=== PATIENT | female | born 1985 | race Caucasian/White ===

== ENCOUNTER 2018-07-24 22:31 | Inpatient (IN) | payer OTHER ==
[~2018-07-24] VITALS: Ht 147.3 cm; Wt 41.9 kg
[~2018-07-24 22:31] MED LIST: ALBU25PO2; SYMBACORT
--- NOTE | 2018-07-24 22:49 | NUR ---
PT BIB [facility] FROM HOME FOR PRODUCTIVE COUGH X5D, WITH WORSENING SOB TODAY. PT HAS HX OF BRONCHOPULMONARY DYSPLASIS, WEARS 1L O2 AT HOME AND USES ALBUTEROL INHALER BUT WASN'T EFFECTIVE TODAY. EMS FOUND PT TO BE 84% ON 1L, IMPROVED TO 93% ON 3L. TREATED WITH 2 DUONEB & 1 ALBUTEROL TX EN ROUTE. PT ARRIVES TO ED IN MODERATE RESPIRATORY DISTRESS, A&OX4, ABLE TO SPEAK IN FULL SENTENCES. RR 28, 93% ON 6L NC. TEMP 100.0. ERP AT BS IMMEDIATELY. BOYFRIEND AT BS.
[2018-07-24] MEDS ORDERED: methylPREDNISolone SOD SUCC 125 MG/2 ML IVP ONE (23:00)
[2018-07-24] MEDS: ALBUTEROL 0.5%, 20ML NPPB SCH (23:11)
[2018-07-24] MEDS ORDERED: methylPREDNISolone SOD SUCC 125 MG/2 ML ONE (23:13)
--- NOTE | 2018-07-24 23:20 | NUR ---
PT GOT BREATHING TX FROM RT. NOW BREATHING MUCH LESS LABORED. O2 TITRATED DOWN TO 4L NC. Addendum: 07/24/18 at 2320 by HBENSON MEDICATED WITH SOLUMEDROL PER ORDERS.
[2018-07-24 23:54] LABS: BASOPHILS % (AUTO) 0 % (0-1); EOSINOPHILS # (AUTO) 0.05 x10^3/uL (0-0.4); EOSINOPHILS % (AUTO) 0 % (1-7); LYMPHOCYTES # (AUTO) 0.57 x10^3/uL (1-3.4); LYMPHOCYTES % (AUTO) 4 % (22-44); MD NO; MEAN CORPUSCULAR HEMOGLOBIN 30.6 pg (27.0-34.8); MEAN CORPUSCULAR HGB CONC 33.8 g/dL (32.4-35.8); MEAN CORPUSCULAR VOLUME 90.4 fL (80-100); MEAN PLATELET VOLUME 8.1 fL (7.4-10.4); MONOCYTES # (AUTO) 0.71 x10^3/uL (0.2-0.8); MONOCYTES % (AUTO) 5 % (2-9); NEUTROPHILS # (AUTO) 11.85 x10^3/uL (1.8-6.8); NEUTROPHILS % (AUTO) 90 % (42-75); PLATELET COUNT 239 x10^3/uL (130-400); RED BLOOD COUNT 5.23 x10^6/uL (3.82-5.3); RED CELL DISTRIBUTION WIDTH 12.8 % (9.6-15.2)
[2018-07-25] MEDS ORDERED: ALBU18HF INH (00:04)
[2018-07-25] MEDS ORDERED: FLUT1DIS3 INH (00:04)
--- NOTE | 2018-07-25 00:04 | NUR ---
REPORTED TO GINGER BEGUM.
[2018-07-25 00:07] LABS: ALANINE AMINOTRANSFERASE 30 U/L (12-78); ANION GAP 7 mmol/L (5-15); CALCIUM 8.2 mg/dL (8.5-10.1); CHLORIDE 108 mmol/L (98-107); CREATININE 0.62 mg/dL (0.55-1.02)
--- NOTE | 2018-07-25 00:07 | NUR ---
RECEIVED BS REPORT FROM KEL FRIEDMAN TO ASSUME PT. CARE. PT. RESTING ON GURNEY IN SITTING POSITON WITH NADN. SKIN PWD, RESP EVEN, NON-LABORED, O2 VIA NC 4L IN USE (HOME O2 IS 1L NC). PT. REPROTS FEELING BETTER AT THIS TIME. FAMILY AT BS FOR SUPPORT. PT. AWARE OF PLAN FOR ADMISSION. CALL LIGHT IN REACH. ALL MONITORS IN PLACE.
[2018-07-25 00:11] LABS: ALKALINE PHOSPHATASE 47 U/L (45-117); BILIRUBIN,TOTAL 0.5 mg/dL (0.2-1.0); TOTAL PROTEIN 7.4 g/dL (6.4-8.2); TROPONIN I < 0.015 ng/mL (0.000-0.045)
[2018-07-25] MEDS ORDERED: AZITHROMYCIN 500 MG in SODIUM CHLORIDE 0.9% 250 ML IV ONE (00:30)
--- NOTE | 2018-07-25 00:55 | NUR ---
[facility] AT TO EVAL PT. FOR ADMISSION.
[2018-07-25] MEDS ORDERED: BISACODYL 10 MG SUPP PR PRN (01:00)
[2018-07-25] MEDS ORDERED: ONDANSETRON 2MG/ML, 2ML IVPush PRN (01:00)
[2018-07-25] MEDS ORDERED: ACETAMINOPHEN 325 MG TABLET PO PRN (01:00)
[2018-07-25] MEDS ORDERED: POLYETHYLENE GLYCOL 17 GM PACKET PO PRN (01:00)
[2018-07-25] MEDS ORDERED: morphine SULFATE 10 MG/ML, 1ML IVPush PRN ×2 (01:00→22:00)
[2018-07-25] MEDS ORDERED: DOCUSATE 100 MG CAPSULE PO PRN (01:00)
[2018-07-25 01:29] LABS: HEMOGLOBIN A1C 5.5 % (4.2-6.3)
[2018-07-25 01:31] LABS: FREE T4 (FREE THYROXINE) 1.51 ng/dL (0.76-1.46); THYROID STIMULATING HORMONE 0.628 mIU/L (0.358-3.740)
--- NOTE | 2018-07-25 01:42 | NUR ---
PT. ASSISTED TO COMMODE AND BACK TO [facility] POSITIONED FOR COMFORT. PT. TOLERATED WELL. AWAITING BED PLACEMENT.
--- NOTE | 2018-07-25 02:52 | NUR ---
REPORT TO KEL MUSE. FLOOR READY FOR PT. TRANSPORT.
[2018-07-25 03:02] LABS: RAPID INFLUENZA A Negative (Negative); RAPID INFLUENZA B Negative (Negative)
[2018-07-25 03:15] VITALS: BP 131/94
[2018-07-25] MEDS: ALBUTEROL SULFATE 2.5 MG/3 ML NPPB SCH ×5 (06:00→23:00)
[2018-07-25] MEDS: CEFTRIAXONE PMX 2GM/50ML 50 ML IV SCH (06:12)
[2018-07-25] MEDS: SODIUM CHLORIDE 0.9% 1,000 ML IV SCH ×2 (06:12→11:10)
[2018-07-25] MEDS: HEPARIN 5,000 UNITS/ML, 1ML SQ SCH ×3 (06:13→22:15)
[2018-07-25] MEDS: BUDESONIDE 0.5 MG/2 ML INHA NPPB SCH ×2 (08:05→19:03)
[2018-07-25 08:27] VITALS: BP 144/84
[2018-07-25] MEDS ORDERED: TEMPLATE NON-FORMULARY MED. (Fluticasone/Salmeterol** (Advair 250-50 Diskus**) 1 PUFF) INH SCH (09:00)
[2018-07-25 13:13] LABS: HCG UR SG 1.033 (1.003-1.030)
[2018-07-25 13:34] VITALS: BP 151/95
[2018-07-25] MEDS: methylPREDNISolone SOD SUCC 125 MG/2 ML IVPush SCH ×2 (13:57→20:17)
[2018-07-25] MEDS ORDERED: SODIUM CHLORIDE 0.9% 1,000 ML IV SCH (14:00)
[2018-07-25] MEDS ORDERED: OMNIPAQUE 350 MG/ML, 100ML BOTTLE ONE (15:44)
[2018-07-25 17:16] LABS: BASOPHILS % (AUTO) 0 % (0-1); EOSINOPHILS % (AUTO) 0 % (1-7); LYMPHOCYTES % (AUTO) 7 % (22-44); MD NO; MEAN CORPUSCULAR HEMOGLOBIN 30.6 pg (27.0-34.8); MEAN CORPUSCULAR HGB CONC 33.9 g/dL (32.4-35.8); MEAN CORPUSCULAR VOLUME 90.3 fL (80-100); MEAN PLATELET VOLUME 8.5 fL (7.4-10.4); MONOCYTES # (AUTO) 0.41 x10^3/uL (0.2-0.8); MONOCYTES % (AUTO) 7 % (2-9); NEUTROPHILS # (AUTO) 5.05 x10^3/uL (1.8-6.8); NEUTROPHILS % (AUTO) 86 % (42-75); PLATELET COUNT 234 x10^3/uL (130-400); RED BLOOD COUNT 5.02 x10^6/uL (3.82-5.3); RED CELL DISTRIBUTION WIDTH 12.9 % (9.6-15.2)
[2018-07-25 17:21] LABS: ANION GAP 6 mmol/L (5-15); CALCIUM 8.2 mg/dL (8.5-10.1); CHLORIDE 110 mmol/L (98-107)
[2018-07-25] MEDS: ALBUTEROL 0.5%, 20ML NPPB SCH (20:50)
[2018-07-25] MEDS: LORazepam 2 MG/ML, 1ML IVPush PRN (22:15)
[2018-07-25] MEDS ORDERED: Albuterol Continuous Neb. Aerogen Syringe 50mg/60ml INLINE PRN (22:30)
[2018-07-25] MEDS ORDERED: MAGNESIUM SULFATE PMX 2GM/50ML 50 ML IV ONE (22:30)
[2018-07-25] MEDS: AZITHROMYCIN 500 MG in SODIUM CHLORIDE 0.9% 250 ML IV SCH (22:59)
[2018-07-26] MEDS: methylPREDNISolone SOD SUCC 125 MG/2 ML IVPush SCH ×4 (01:42→20:20)
[2018-07-26] MEDS: ALBUTEROL SULFATE 2.5 MG/3 ML NPPB SCH ×5 (03:00→23:00)
[2018-07-26] MEDS: LORazepam 2 MG/ML, 1ML IVPush PRN (03:56)
[2018-07-26] MEDS ORDERED: SUCCINYLCHOLINE 20 MG/ML, 10ML IVPush ONE (04:50)
[2018-07-26] MEDS ORDERED: ETOMIDATE 20 MG/10 ML IVPush ONE (04:50)
[2018-07-26] MEDS ORDERED: SENNOSIDES 8.8 MG/5 ML ORAL SOL NG PRN (05:00)
[2018-07-26] MEDS ORDERED: SENNA/DOCUSATE TABLET NG PRN (05:00)
[2018-07-26] MEDS ORDERED: BISACODYL 10 MG SUPP PR PRN (05:00)
[2018-07-26] MEDS ORDERED: LACTULOSE 20 GM/30 ML UDC NG PRN (05:00)
[2018-07-26] MEDS: ALBUTEROL/IPRATROPIUM 2.5MG/0.5MG, 3 ML INLINE SCH ×2 (05:00→10:55)
[2018-07-26] MEDS ORDERED: GLUCAGON 1 MG IM PRN (05:00)
[2018-07-26] MEDS ORDERED: PHARMACY MAY ADJ FOR RENAL FX MC SCH (05:00)
[2018-07-26] MEDS ORDERED: LORazepam 2 MG/ML, 1ML IVPush PRN (05:00)
[2018-07-26] MEDS ORDERED: DEXTROSE 50%, 50ML SYRINGE IVPush PRN (05:00)
[2018-07-26] MEDS ORDERED: DEXTROSE 4 GM TAB.CHEW PO PRN (05:00)
[2018-07-26] MEDS: PROPOFOL 100 ML IV PRN ×2 (05:15→10:46)
[2018-07-26] MEDS ORDERED: PROPOFOL 100 ML IV PRN (05:30)
[2018-07-26 06:30] LABS: BASOPHILS % (AUTO) 0 % (0-1); EOSINOPHILS % (AUTO) 0 % (1-7); LYMPHOCYTES # (AUTO) 0.55 x10^3/uL (1-3.4); LYMPHOCYTES % (AUTO) 5 % (22-44); MD NO; MEAN CORPUSCULAR HEMOGLOBIN 30.7 pg (27.0-34.8); MEAN CORPUSCULAR HGB CONC 33.9 g/dL (32.4-35.8); MEAN CORPUSCULAR VOLUME 90.4 fL (80-100); MEAN PLATELET VOLUME 8.7 fL (7.4-10.4); MONOCYTES # (AUTO) 0.48 x10^3/uL (0.2-0.8); MONOCYTES % (AUTO) 5 % (2-9); NEUTROPHILS # (AUTO) 9.21 x10^3/uL (1.8-6.8); NEUTROPHILS % (AUTO) 90 % (42-75); PLATELET COUNT 261 x10^3/uL (130-400); RED BLOOD COUNT 4.84 x10^6/uL (3.82-5.3); RED CELL DISTRIBUTION WIDTH 12.8 % (9.6-15.2)
[2018-07-26 06:34] LABS: ALANINE AMINOTRANSFERASE 38 U/L (12-78); ALBUMIN 3.8 g/dL (3.4-5.0); ANION GAP 5 mmol/L (5-15); CHLORIDE 111 mmol/L (98-107); CHOLESTEROL, TOTAL 143 mg/dL (140-239); CREATININE 0.72 mg/dL (0.55-1.02)
[2018-07-26 06:37] LABS: ALKALINE PHOSPHATASE 45 U/L (45-117); BILIRUBIN,TOTAL 0.5 mg/dL (0.2-1.0); HDL CHOLESTEROL (DIRECT) 38 mg/dL (40-60); TOTAL PROTEIN 7.3 g/dL (6.4-8.2); TRIGLYCERIDES 114 mg/dL (50-200); VLDL CHOLESTEROL 23 mg/dL (0-25)
[2018-07-26 07:10] LABS: ACETONE, SERUM Negative (Negative)
[2018-07-26 07:20] LABS: CHOL/HDL RATIO 3.8; HDL CHOL % 27 % (28-40); LDL CHOLESTEROL,CALCULATED 82 mg/dL (54-169); LDL/HDL RATIO 2.2 (0.5-3.0)
[2018-07-26] MEDS: HEPARIN 5,000 UNITS/ML, 1ML SQ SCH ×3 (08:08→20:39)
[2018-07-26] MEDS: FAMOTIDINE 20 MG/2 ML IV SCH ×2 (08:08→20:20)
[2018-07-26] MEDS: CEFTRIAXONE PMX 2GM/50ML 50 ML IV SCH (08:21)
[2018-07-26] MEDS: INSULIN LISPRO 100 UNITS/ML, PEN SQ-INSULIN SCH ×4 (08:27→20:29)
[2018-07-26] MEDS ORDERED: SODIUM CHLORIDE 0.9% 1,000 ML IV SCH (08:30)
[2018-07-26 08:44] LABS: MICROSCOPIC INDICATED
[2018-07-26 08:52] LABS: CULTURE INDICATED? NO
[2018-07-26] MEDS: SODIUM CHLORIDE FLUSH 10ML SYR IVF SCH ×2 (09:00→20:23)
--- NOTE | 2018-07-26 09:27 | NUR ---
TF GOAL: w/ propofol: OSMOLITE 1.2 @ 45ML/HR off propofol: OSMOLITE 1.2 @ 50ML/HR
[2018-07-26] MEDS: BUDESONIDE 0.5 MG/2 ML INHA NPPB SCH ×2 (10:55→21:00)
[2018-07-26] MEDS ORDERED: ETOMIDATE 20 MG/10 ML ONE (12:00)
[2018-07-26] MEDS ORDERED: SUCCINYLCHOLINE 20 MG/ML, 10ML ONE (12:00)
[2018-07-26] MEDS ORDERED: PROPOFOL 10 MG/ML, 100ML IV ONE (12:00)
[2018-07-26] MEDS ORDERED: SODIUM CHLORIDE 0.9%, 500ML IVBOLUS ONE (14:30)
[2018-07-26] MEDS: FENTANYL PF 100 MCG/2ML IVPush PRN (23:49)
[2018-07-26] MEDS: AZITHROMYCIN 500 MG in SODIUM CHLORIDE 0.9% 250 ML IV SCH (23:57)
[2018-07-27] MEDS: ALBUTEROL SULFATE 2.5 MG/3 ML NPPB SCH ×3 (02:16→11:00)
[2018-07-27] MEDS: methylPREDNISolone SOD SUCC 125 MG/2 ML IVPush SCH ×4 (02:54→19:26)
[2018-07-27] MEDS: FENTANYL PF 100 MCG/2ML IVPush PRN ×7 (03:07→23:22)
[2018-07-27 05:07] LABS: ANION GAP 4 mmol/L (5-15); CALCIUM 7.7 mg/dL (8.5-10.1); CHLORIDE 117 mmol/L (98-107); CREATININE 0.61 mg/dL (0.55-1.02)
[2018-07-27 05:11] LABS: MEAN CORPUSCULAR HEMOGLOBIN 29.9 pg (27.0-34.8); MEAN CORPUSCULAR VOLUME 90.7 fL (80-100); MEAN PLATELET VOLUME 8.6 fL (7.4-10.4); PLATELET COUNT 231 x10^3/uL (130-400); RED BLOOD COUNT 4.43 x10^6/uL (3.82-5.3)
[2018-07-27] MEDS ORDERED: SODIUM CHLORIDE 0.9%, 500ML IVBOLUS ONE (05:30)
[2018-07-27] MEDS: CEFTRIAXONE PMX 2GM/50ML 50 ML IV SCH (05:33)
[2018-07-27] MEDS: HEPARIN 5,000 UNITS/ML, 1ML SQ SCH (05:33)
[2018-07-27 05:39] LABS: BASOPHILS % (AUTO) 0 % (0-1); EOSINOPHILS % (AUTO) 0 % (1-7); LYMPHOCYTES % (AUTO) 2 % (22-44); MD SCAN; MONOCYTES # (AUTO) 0.57 x10^3/uL (0.2-0.8); MONOCYTES % (AUTO) 3 % (2-9); NEUTROPHILS % (AUTO) 94 % (42-75)
[2018-07-27] MEDS: SODIUM CHLORIDE 0.9% 1,000 ML IV SCH ×2 (07:19→19:13)
[2018-07-27] MEDS: PROPOFOL 100 ML IV PRN (07:19)
[2018-07-27] MEDS: INSULIN LISPRO 100 UNITS/ML, PEN SQ-INSULIN SCH ×3 (08:25→19:34)
[2018-07-27] MEDS: FAMOTIDINE 20 MG/2 ML IV SCH ×2 (08:47→19:26)
[2018-07-27] MEDS: BUDESONIDE 0.5 MG/2 ML INHA NPPB SCH (09:00)
[2018-07-27] MEDS: DOXYCYCLINE 100 MG in DEXTROSE 5% 250 ML IV SCH ×2 (09:59→21:18)
[2018-07-27] MEDS: SODIUM CHLORIDE FLUSH 10ML SYR IVF SCH ×2 (09:59→19:27)
[2018-07-27 10:46] LABS: INTERNATIONAL NORMALIZED RATIO 1.07 (0.93-1.1); PROTHROMBIN TIME 11.2 Seconds (9.6-11.5)
[2018-07-27] MEDS ORDERED: BUDESONIDE 0.5 MG/2 ML INHA NPPB PRN (13:00)
[2018-07-27] MEDS: LIDOCAINE-MPF 1%, 2ML ENDO PRN (22:03)
[2018-07-27] MEDS: ALBUTEROL SULFATE 2.5 MG/3 ML NPPB PRN (22:03)
[2018-07-28] MEDS: INSULIN LISPRO 100 UNITS/ML, PEN SQ-INSULIN SCH ×4 (01:00→19:00)
[2018-07-28] MEDS: FENTANYL PF 100 MCG/2ML IVPush PRN ×3 (01:06→08:11)
[2018-07-28] MEDS: methylPREDNISolone SOD SUCC 125 MG/2 ML IVPush SCH ×4 (01:48→20:17)
[2018-07-28] MEDS: ALBUTEROL SULFATE 2.5 MG/3 ML NPPB PRN ×4 (02:00→10:58)
[2018-07-28] MEDS: LIDOCAINE-MPF 1%, 2ML ENDO PRN ×2 (02:00→14:45)
[2018-07-28 04:13] LABS: MEAN CORPUSCULAR HEMOGLOBIN 30.3 pg (27.0-34.8); MEAN CORPUSCULAR HGB CONC 33.1 g/dL (32.4-35.8); MEAN CORPUSCULAR VOLUME 91.7 fL (80-100); MEAN PLATELET VOLUME 8.7 fL (7.4-10.4); PLATELET COUNT 243 x10^3/uL (130-400); RED BLOOD COUNT 4.37 x10^6/uL (3.82-5.3); RED CELL DISTRIBUTION WIDTH 13.3 % (9.6-15.2)
[2018-07-28 04:26] LABS: ANION GAP 3 mmol/L (5-15); CALCIUM 7.7 mg/dL (8.5-10.1); CHLORIDE 118 mmol/L (98-107)
[2018-07-28 04:28] LABS: BASOPHILS # (AUTO) 0.02 x10^3/uL (0-0.1); BASOPHILS % (AUTO) 0 % (0-1); EOSINOPHILS % (AUTO) 0 % (1-7); LYMPHOCYTES # (AUTO) 0.25 x10^3/uL (1-3.4); LYMPHOCYTES % (AUTO) 1 % (22-44); MD SCAN; MONOCYTES # (AUTO) 0.49 x10^3/uL (0.2-0.8); MONOCYTES % (AUTO) 3 % (2-9); NEUTROPHILS # (AUTO) 18.08 x10^3/uL (1.8-6.8); NEUTROPHILS % (AUTO) 96 % (42-75)
[2018-07-28] MEDS ORDERED: BENZOCAINE AEROSOL SPRAY 20%, 60ML TP ONE (05:00)
[2018-07-28] MEDS: SODIUM CHLORIDE 0.9% 1,000 ML IV SCH (06:17)
[2018-07-28] MEDS: FAMOTIDINE 20 MG/2 ML IV SCH ×2 (08:00→20:17)
[2018-07-28] MEDS: SODIUM CHLORIDE FLUSH 10ML SYR IVF SCH ×2 (09:00→20:17)
[2018-07-28] MEDS: POTASSIUM CHLORIDE 10% 20 MEQ/15 ML UDC NG SCH ×2 (09:00→20:17)
[2018-07-28] MEDS: FUROSEMIDE 20 MG/2 ML IV SCH ×2 (09:00→20:16)
[2018-07-28] MEDS ORDERED: OMNIPAQUE 350 MG/ML, 100ML BOTTLE ONE (13:38)
[2018-07-28] MEDS: ALBUTEROL SULFATE 2.5 MG/3 ML NPPB SCH ×3 (14:45→22:20)
[2018-07-28] MEDS: DOXYCYCLINE 100 MG in DEXTROSE 5% 250 ML IV SCH ×2 (15:03→21:14)
[2018-07-28] MEDS: morphine SULFATE ORAL.CONC 20 MG/ML PO PRN (20:16)
[2018-07-28] MEDS: BUDESONIDE 0.5 MG/2 ML INHA NPPB SCH (22:20)
[2018-07-29] MEDS: morphine SULFATE ORAL.CONC 20 MG/ML PO PRN ×4 (01:04→13:07)
[2018-07-29] MEDS: INSULIN LISPRO 100 UNITS/ML, PEN SQ-INSULIN SCH ×5 (01:17→21:00)
[2018-07-29] MEDS: ALBUTEROL SULFATE 2.5 MG/3 ML NPPB SCH ×6 (02:03→22:01)
[2018-07-29] MEDS: methylPREDNISolone SOD SUCC 125 MG/2 ML IVPush SCH ×4 (02:15→21:26)
[2018-07-29 04:28] LABS: MEAN CORPUSCULAR VOLUME 91.1 fL (80-100); MEAN PLATELET VOLUME 9.1 fL (7.4-10.4); PLATELET COUNT 212 x10^3/uL (130-400); RED BLOOD COUNT 4.38 x10^6/uL (3.82-5.3); RED CELL DISTRIBUTION WIDTH 13.3 % (9.6-15.2)
[2018-07-29 04:37] LABS: ANION GAP 5 mmol/L (5-15); CALCIUM 8.2 mg/dL (8.5-10.1); CHLORIDE 108 mmol/L (98-107); CREATININE 0.51 mg/dL (0.55-1.02); TRIGLYCERIDES 103 mg/dL (50-200)
[2018-07-29 05:13] LABS: BASOPHILS % (AUTO) 0 % (0-1); EOSINOPHILS % (AUTO) 0 % (1-7); LYMPHOCYTES # (AUTO) 0.37 x10^3/uL (1-3.4); LYMPHOCYTES % (AUTO) 2 % (22-44); MD SCAN; MONOCYTES # (AUTO) 0.62 x10^3/uL (0.2-0.8); MONOCYTES % (AUTO) 4 % (2-9); NEUTROPHILS # (AUTO) 14.83 x10^3/uL (1.8-6.8); NEUTROPHILS % (AUTO) 94 % (42-75)
[2018-07-29] MEDS: BUDESONIDE 0.5 MG/2 ML INHA NPPB SCH ×2 (07:00→18:48)
[2018-07-29] MEDS ORDERED: SODIUM CHLORIDE 0.9% 1,000 ML IV SCH (08:30)
[2018-07-29] MEDS: SODIUM CHLORIDE FLUSH 10ML SYR IVF SCH ×2 (08:37→21:27)
[2018-07-29] MEDS: POTASSIUM CHLORIDE 10% 20 MEQ/15 ML UDC NG SCH ×2 (08:37→21:26)
[2018-07-29] MEDS: DOXYCYCLINE 100 MG in DEXTROSE 5% 250 ML IV SCH (08:37)
[2018-07-29] MEDS: FUROSEMIDE 20 MG/2 ML IV SCH (08:37)
[2018-07-29] MEDS: FAMOTIDINE 20 MG/2 ML IV SCH ×2 (08:37→21:26)
[2018-07-29] MEDS: OXYcodone IR 5MG TABLET PO PRN (21:18)
[2018-07-30] MEDS: ALBUTEROL SULFATE 2.5 MG/3 ML NPPB SCH ×6 (03:00→22:35)
[2018-07-30] MEDS: methylPREDNISolone SOD SUCC 125 MG/2 ML IVPush SCH ×2 (04:19→08:41)
[2018-07-30 04:56] LABS: O2 FLOW 4 L/min
[2018-07-30 05:12] LABS: BASOPHILS # (AUTO) 0.04 x10^3/uL (0-0.1); BASOPHILS % (AUTO) 0 % (0-1); EOSINOPHILS % (AUTO) 0 % (1-7); LYMPHOCYTES # (AUTO) 0.44 x10^3/uL (1-3.4); LYMPHOCYTES % (AUTO) 4 % (22-44); MD NO; MEAN CORPUSCULAR HEMOGLOBIN 30.5 pg (27.0-34.8); MEAN CORPUSCULAR HGB CONC 33.5 g/dL (32.4-35.8); MEAN CORPUSCULAR VOLUME 90.9 fL (80-100); MEAN PLATELET VOLUME 8.8 fL (7.4-10.4); MONOCYTES # (AUTO) 0.44 x10^3/uL (0.2-0.8); MONOCYTES % (AUTO) 4 % (2-9); NEUTROPHILS # (AUTO) 9.96 x10^3/uL (1.8-6.8); NEUTROPHILS % (AUTO) 92 % (42-75); PLATELET COUNT 239 x10^3/uL (130-400); RED BLOOD COUNT 4.34 x10^6/uL (3.82-5.3); RED CELL DISTRIBUTION WIDTH 13.5 % (9.6-15.2)
[2018-07-30 05:21] LABS: ALBUMIN 3.2 g/dL (3.4-5.0); ANION GAP 4 mmol/L (5-15); CALCIUM 8.3 mg/dL (8.5-10.1); CHLORIDE 105 mmol/L (98-107)
[2018-07-30 05:26] LABS: ALANINE AMINOTRANSFERASE 38 U/L (12-78); ALKALINE PHOSPHATASE 37 U/L (45-117); CREATININE 0.53 mg/dL (0.55-1.02); TOTAL PROTEIN 6.1 g/dL (6.4-8.2)
[2018-07-30] MEDS: BUDESONIDE 0.5 MG/2 ML INHA NPPB SCH ×2 (08:10→18:50)
[2018-07-30] MEDS: FAMOTIDINE 20 MG/2 ML IV SCH (08:42)
[2018-07-30] MEDS: INSULIN LISPRO 100 UNITS/ML, PEN SQ-INSULIN SCH ×4 (08:43→20:55)
[2018-07-30] MEDS: OXYcodone IR 5MG TABLET PO PRN ×3 (08:44→21:04)
[2018-07-30] MEDS: SODIUM CHLORIDE FLUSH 10ML SYR IVF SCH ×2 (09:07→21:06)
[2018-07-30] MEDS: ENOXAPARIN 40 MG/0.4 ML SQ SCH (12:05)
[2018-07-30 12:58] VITALS: BP 142/80
[2018-07-30 20:09] VITALS: BP 145/87
[2018-07-30] MEDS: ONDANSETRON ODT 4 MG PO PRN (21:05)
[2018-07-31 01:06] VITALS: BP 118/80
[2018-07-31] MEDS: OXYcodone IR 5MG TABLET PO PRN ×2 (02:09→07:44)
[2018-07-31] MEDS: ONDANSETRON ODT 4 MG PO PRN ×2 (02:09→07:44)
[2018-07-31] MEDS: ALBUTEROL SULFATE 2.5 MG/3 ML NPPB SCH ×4 (02:40→14:10)
[2018-07-31 06:52] VITALS: BP 111/76
[2018-07-31] MEDS: INSULIN LISPRO 100 UNITS/ML, PEN SQ-INSULIN SCH ×2 (06:55→11:05)
[2018-07-31] MEDS: BUDESONIDE 0.5 MG/2 ML INHA NPPB SCH (07:00)
[2018-07-31] MEDS: SODIUM CHLORIDE FLUSH 10ML SYR IVF SCH (07:44)
[2018-07-31] MEDS: ENOXAPARIN 40 MG/0.4 ML SQ SCH (12:30)
[2018-07-31] MEDS ORDERED: PRED10TA PO (15:08)
== END 2018-07-31 16:43 | disposition home or self-care (01) | DRG 871 ==
LOC: ED 23:49 → EDIP 07-25 00:52 → 4NOR 07-25 03:11 → CCU 07-25 20:14 → 4WST 07-30 12:53 → DCLOUNGE 07-31 16:35
PROVIDERS: ADMIT Internal Medicine; ATTEND Internal Medicine
PROC: 0T9B70Z Drainage of Bladder with Drainage Device, Via Natural or Artificial Opening (ICD-10-PCS; principal; 2018-07-26)
PROC: 5A1945Z Respiratory Ventilation, 24-96 Consecutive Hours (ICD-10-PCS; 2018-07-26)
PROC: 0BH17EZ Insertion of Endotracheal Airway into Trachea, Via Natural or Artificial Opening (ICD-10-PCS; 2018-07-26)
DX: A41.9 Sepsis, unspecified organism (principal); J15.9 Unspecified bacterial pneumonia; J96.21 Acute and chronic respiratory failure with hypoxia; J44.0 Chronic obstructive pulmonary disease with (acute) lower respiratory infection; J45.41 Moderate persistent asthma with (acute) exacerbation; Z99.11 Dependence on respirator [ventilator] status; D63.8 Anemia in other chronic diseases classified elsewhere; F12.90 Cannabis use, unspecified, uncomplicated; F40.240 Claustrophobia; I10 Essential (primary) hypertension; I45.10 Unspecified right bundle-branch block; J20.9 Acute bronchitis, unspecified; K80.20 Calculus of gallbladder without cholecystitis without obstruction; Z99.81 Dependence on supplemental oxygen
CPT/HCPCS: 36415; 36600; 74018; 84145; 87400; 99291; J3490; J7611; J7613; J7620; J7626; 71045; 71260; 71275; 74177; 80048; 80053; 80061; 81001; 81025; 82010; 82803; 82962; 83036; 83605; 83690; 83735; 84439; 84443; 84478; 84484; 85025; 85610; 87040; 87070; 87081; 87205; 93005; 93306; 94002; 94003; 94150; 94640; 94644; 96365; G0378; J0456; J0696; J1644; J1650; J2405; J2704; J3010; J7060; Q0162; Q9967; J0330; J1815; J1940; J2060; J2270; J2930; J3475; J7030; J7040; J7050; J7512

== ENCOUNTER 2018-09-13 17:19 | Inpatient (IN) | payer OTHER ==
[~2018-09-13] VITALS: Ht 149.9 cm; Wt 46.9 kg
[~2018-09-13 17:19] MED LIST changes: +ALBU18HF INH; +FLUT1DIS3 INH; +PRED10TA PO
[2018-09-13] MEDS ORDERED: ALBUTEROL/IPRATROPIUM 2.5MG/0.5MG, 3 ML ONE (17:53)
[2018-09-13] MEDS ORDERED: ALBUTEROL/IPRATROPIUM 2.5MG/0.5MG, 3 ML NPPB SCH (18:00)
--- NOTE | 2018-09-13 18:10 | NUR ---
PT RESTING IN POSITION OF COMFORT ON GURNEY. WOB HAS IMPROVED FOLLOWING BREATHING TX. PT HAS CONTINUOUS SPO2 AND CARDIAC MONITORING IN PLACE. VSS. AWAITING CT SCAN. PT'S BF AT BEDSIDE. CALL LIGHT W/IN REACH, PT INSTRUCTED ON USE, VERBALIZED UNDERSTANDING. FALL PRECAUTIONS IN PLACE.
[2018-09-13 18:20] LABS: BASOPHILS # (AUTO) 0.04 x10^3/uL (0-0.1); BASOPHILS % (AUTO) 0 % (0-1); EOSINOPHILS # (AUTO) 0.09 x10^3/uL (0-0.4); EOSINOPHILS % (AUTO) 1 % (1-7); LYMPHOCYTES # (AUTO) 1.79 x10^3/uL (1-3.4); LYMPHOCYTES % (AUTO) 13 % (22-44); MD NO; MEAN CORPUSCULAR HEMOGLOBIN 30.2 pg (27.0-34.8); MEAN CORPUSCULAR HGB CONC 33.6 g/dL (32.4-35.8); MEAN CORPUSCULAR VOLUME 89.9 fL (80-100); MEAN PLATELET VOLUME 7.4 fL (7.4-10.4); MONOCYTES # (AUTO) 0.85 x10^3/uL (0.2-0.8); MONOCYTES % (AUTO) 6 % (2-9); NEUTROPHILS # (AUTO) 11.07 x10^3/uL (1.8-6.8); NEUTROPHILS % (AUTO) 80 % (42-75); PLATELET COUNT 382 x10^3/uL (130-400); RED CELL DISTRIBUTION WIDTH 13.9 % (9.6-15.2)
[2018-09-13 18:30] LABS: ALBUMIN 3.4 g/dL (3.4-5.0); ANION GAP 8 mmol/L (5-15); CALCIUM 8.9 mg/dL (8.5-10.1); CHLORIDE 104 mmol/L (98-107); CREATININE 0.59 mg/dL (0.55-1.02)
[2018-09-13 18:34] LABS: TROPONIN I < 0.015 ng/mL (0.000-0.045)
--- NOTE | 2018-09-13 18:44 | NUR ---
REPORT TO KEL OTOOLE. POC DISCUSSED C RN AND PT.
[2018-09-13] MEDS ORDERED: PIPERACILLIN/TAZO/PMX 3.375GM 50 ML IV ONE (19:00)
[2018-09-13] MEDS ORDERED: OMNIPAQUE 350 MG/ML, 100ML BOTTLE ONE (19:11)
[2018-09-13] MEDS ORDERED: PIPERACILLIN/TAZO/PMX 3.375GM 50 ML ONE (19:13)
[2018-09-13] MEDS ORDERED: SODIUM CHLORIDE 0.9% 1,000ML IVBOLUS ONE (20:30)
[2018-09-13] MEDS ORDERED: ZOSYN PER PHARMACY MC PRN (21:00)
[2018-09-13] MEDS ORDERED: ALBUTEROL/IPRATROPIUM 2.5MG/0.5MG, 3 ML HHN PRN (21:00)
[2018-09-13] MEDS ORDERED: POTASSIUM CHLORIDE 20 MEQ TAB.ER.PRT PO ONE (21:00)
[2018-09-13] MEDS ORDERED: VANCOMYCIN PER PHARMACY MC PRN (21:00)
--- NOTE | 2018-09-13 22:05 | NUR ---
AWAITING ADMIT BED, PT IN NAD
--- NOTE | 2018-09-13 22:40 | NUR ---
REPORT TO SUSIE COSTA TO FLOOR WITH TECH
[2018-09-13] MEDS ORDERED: PHARMACOKINETIC MONITORING MC PRN (23:30)
[2018-09-13] MEDS ORDERED: PHARMACOKINETIC CONSULTATION MC ONE (23:30)
[2018-09-13] MEDS: VANCOMYCIN 800 MG in SODIUM CHLORIDE 0.9% 100 ML IV SCH (23:44)
[2018-09-14 00:31] LABS: RAPID INFLUENZA A Negative (Negative); RAPID INFLUENZA B Negative (Negative)
[2018-09-14] MEDS: PIPERACILLIN/TAZO/PMX 4.5GM 100 ML IV SCH ×4 (00:59→20:25)
[2018-09-14 01:02] VITALS: BP 131/87
[2018-09-14 01:59] VITALS: BP 126/82
[2018-09-14 06:55] VITALS: BP 115/77
[2018-09-14 07:15] LABS: MEAN CORPUSCULAR HEMOGLOBIN 29.8 pg (27.0-34.8); MEAN CORPUSCULAR HGB CONC 33.2 g/dL (32.4-35.8); MEAN CORPUSCULAR VOLUME 89.7 fL (80-100); MEAN PLATELET VOLUME 7.5 fL (7.4-10.4); PLATELET COUNT 295 x10^3/uL (130-400); RED BLOOD COUNT 4.19 x10^6/uL (3.82-5.3); RED CELL DISTRIBUTION WIDTH 14.2 % (9.6-15.2)
[2018-09-14 07:18] LABS: ANION GAP 6 mmol/L (5-15); CALCIUM 8.1 mg/dL (8.5-10.1); CHLORIDE 112 mmol/L (98-107); CREATININE 0.54 mg/dL (0.55-1.02)
[2018-09-14 08:00] LABS: BASOPHILS % (AUTO) 0 % (0-1); EOSINOPHILS % (AUTO) 0 % (1-7); LYMPHOCYTES # (AUTO) 0.85 x10^3/uL (1-3.4); LYMPHOCYTES % (AUTO) 9 % (22-44); MD SCAN; MONOCYTES # (AUTO) 0.44 x10^3/uL (0.2-0.8); MONOCYTES % (AUTO) 4 % (2-9); NEUTROPHILS # (AUTO) 8.68 x10^3/uL (1.8-6.8); NEUTROPHILS % (AUTO) 87 % (42-75)
[2018-09-14] MEDS ORDERED: predniSONE 50MG TABLET ONE (09:34)
[2018-09-14 12:31] VITALS: BP 124/85
[2018-09-14] MEDS: VANCOMYCIN 800 MG in SODIUM CHLORIDE 0.9% 100 ML IV SCH ×2 (12:42→23:20)
[2018-09-14] MEDS: GUAIFENESIN/DM 200-20MG, 10ML UDC PO PRN ×2 (12:43→20:25)
[2018-09-14] MEDS ORDERED: ACETAMINOPHEN 325 MG TABLET ONE (17:28)
[2018-09-14] MEDS: ACETAMINOPHEN 325 MG TABLET PO PRN (17:49)
[2018-09-14] MEDS ORDERED: ALBUTEROL SULFATE 2.5 MG/3 ML ONE (18:50)
[2018-09-14] MEDS: ALBUTEROL SULFATE 2.5 MG/3 ML NPPB SCH (18:55)
[2018-09-14 19:50] VITALS: BP 117/69
[2018-09-14] MEDS: BUDESONIDE 0.5 MG/2 ML INHA INH SCH (21:00)
[2018-09-15 00:40] VITALS: BP 129/84
[2018-09-15] MEDS: PIPERACILLIN/TAZO/PMX 4.5GM 100 ML IV SCH ×4 (01:54→20:49)
[2018-09-15] MEDS: GUAIFENESIN/DM 200-20MG, 10ML UDC PO PRN ×4 (02:38→22:47)
[2018-09-15 07:10] VITALS: BP 120/81
[2018-09-15] MEDS: ACETAMINOPHEN 325 MG TABLET PO PRN ×2 (09:20→16:01)
[2018-09-15] MEDS: BUDESONIDE 0.5 MG/2 ML INHA INH SCH ×2 (09:26→20:04)
[2018-09-15] MEDS: ALBUTEROL SULFATE 2.5 MG/3 ML NPPB SCH ×2 (09:26→20:04)
[2018-09-15] MEDS: VANCOMYCIN 800 MG in SODIUM CHLORIDE 0.9% 100 ML IV SCH ×2 (11:49→23:50)
[2018-09-15 13:26] VITALS: BP 118/79
[2018-09-15 20:30] VITALS: BP 130/77
[2018-09-16 01:26] VITALS: BP 106/66
[2018-09-16] MEDS: PIPERACILLIN/TAZO/PMX 4.5GM 100 ML IV SCH ×4 (02:16→18:19)
[2018-09-16] MEDS: ACETAMINOPHEN 325 MG TABLET PO PRN (04:18)
[2018-09-16 04:38] LABS: BASOPHILS # (AUTO) 0.03 x10^3/uL (0-0.1); BASOPHILS % (AUTO) 0 % (0-1); EOSINOPHILS # (AUTO) 0.11 x10^3/uL (0-0.4); EOSINOPHILS % (AUTO) 1 % (1-7); LYMPHOCYTES # (AUTO) 2.67 x10^3/uL (1-3.4); LYMPHOCYTES % (AUTO) 23 % (22-44); MD NO; MEAN CORPUSCULAR HEMOGLOBIN 30.3 pg (27.0-34.8); MEAN CORPUSCULAR HGB CONC 33.5 g/dL (32.4-35.8); MEAN CORPUSCULAR VOLUME 90.3 fL (80-100); MEAN PLATELET VOLUME 7.5 fL (7.4-10.4); MONOCYTES # (AUTO) 0.73 x10^3/uL (0.2-0.8); MONOCYTES % (AUTO) 6 % (2-9); NEUTROPHILS # (AUTO) 8.28 x10^3/uL (1.8-6.8); NEUTROPHILS % (AUTO) 70 % (42-75); PLATELET COUNT 312 x10^3/uL (130-400); RED BLOOD COUNT 4.09 x10^6/uL (3.82-5.3); RED CELL DISTRIBUTION WIDTH 14.1 % (9.6-15.2)
[2018-09-16 04:47] LABS: ALBUMIN 2.8 g/dL (3.4-5.0); ANION GAP 5 mmol/L (5-15); CHLORIDE 109 mmol/L (98-107)
[2018-09-16] MEDS: GUAIFENESIN/DM 200-20MG, 10ML UDC PO PRN ×2 (04:57→18:31)
[2018-09-16 07:12] VITALS: BP 121/83
[2018-09-16] MEDS: BUDESONIDE 0.5 MG/2 ML INHA INH SCH ×2 (09:14→19:53)
[2018-09-16] MEDS: ALBUTEROL SULFATE 2.5 MG/3 ML NPPB SCH ×2 (09:14→19:53)
[2018-09-16] MEDS: VANCOMYCIN 800 MG in SODIUM CHLORIDE 0.9% 100 ML IV SCH ×2 (11:30→21:28)
[2018-09-16 13:24] LABS: ALANINE AMINOTRANSFERASE 44 U/L (12-78); ALBUMIN 3.2 g/dL (3.4-5.0)
[2018-09-16 13:26] LABS: ALKALINE PHOSPHATASE 93 U/L (45-117); TOTAL PROTEIN 6.7 g/dL (6.4-8.2)
[2018-09-16 13:27] VITALS: BP 126/83
[2018-09-16 13:30] LABS: BILIRUBIN, DIRECT < 0.1 mg/dL (0.1-0.2)
[2018-09-16 13:42] LABS: BILIRUBIN,INDIRECT 0.1 mg/dL (0.0-2.0); BILIRUBIN,TOTAL 0.2 mg/dL (0.2-1.0)
[2018-09-16 19:22] VITALS: BP 122/78
[2018-09-16] MEDS: MICAFUNGIN 100 MG in SODIUM CHLORIDE 0.9% 100 ML IV SCH (19:24)
[2018-09-17] MEDS: PIPERACILLIN/TAZO/PMX 4.5GM 100 ML IV SCH ×4 (00:08→17:28)
[2018-09-17 00:12] VITALS: BP 130/86
[2018-09-17 07:15] VITALS: BP 119/81
[2018-09-17] MEDS: GUAIFENESIN/DM 200-20MG, 10ML UDC PO PRN ×2 (08:27→17:32)
[2018-09-17] MEDS: VANCOMYCIN 900 MG in SODIUM CHLORIDE 0.9% 100 ML IV SCH ×2 (09:40→21:27)
[2018-09-17] MEDS: BUDESONIDE 0.5 MG/2 ML INHA INH SCH ×2 (11:15→21:51)
[2018-09-17] MEDS: ALBUTEROL SULFATE 2.5 MG/3 ML NPPB SCH ×2 (11:15→21:51)
[2018-09-17] MEDS: ACETAMINOPHEN 325 MG TABLET PO PRN (14:10)
[2018-09-17 15:30] VITALS: BP 117/81
[2018-09-17] MEDS: MICAFUNGIN 100 MG in SODIUM CHLORIDE 0.9% 100 ML IV SCH (15:41)
[2018-09-17 19:32] VITALS: BP 127/81
[2018-09-18] MEDS: PIPERACILLIN/TAZO/PMX 4.5GM 100 ML IV SCH ×5 (00:06→23:56)
[2018-09-18] MEDS: GUAIFENESIN/DM 200-20MG, 10ML UDC PO PRN ×4 (00:07→23:56)
[2018-09-18 00:12] VITALS: BP 128/81
[2018-09-18 03:42] VITALS: BP 123/67
[2018-09-18] MEDS: VANCOMYCIN 900 MG in SODIUM CHLORIDE 0.9% 100 ML IV SCH ×2 (08:43→20:40)
[2018-09-18 08:56] VITALS: BP 105/61
[2018-09-18] MEDS: ACETAMINOPHEN 325 MG TABLET PO PRN (11:04)
[2018-09-18] MEDS: ALBUTEROL SULFATE 2.5 MG/3 ML NPPB SCH ×2 (12:05→20:41)
[2018-09-18] MEDS: BUDESONIDE 0.5 MG/2 ML INHA INH SCH ×2 (12:06→20:41)
[2018-09-18 12:53] VITALS: BP 114/78
[2018-09-18 13:23] VITALS: BP 114/69
[2018-09-18] MEDS: MICAFUNGIN 100 MG in SODIUM CHLORIDE 0.9% 100 ML IV SCH (15:34)
[2018-09-18 19:55] VITALS: BP 125/86
[2018-09-19 00:59] VITALS: BP 127/74
[2018-09-19] MEDS: PIPERACILLIN/TAZO/PMX 4.5GM 100 ML IV SCH (05:55)
[2018-09-19 07:05] VITALS: BP 131/86
[2018-09-19] MEDS: BUDESONIDE 0.5 MG/2 ML INHA INH SCH (07:12)
[2018-09-19] MEDS: ALBUTEROL SULFATE 2.5 MG/3 ML NPPB SCH (07:12)
[2018-09-19] MEDS: GUAIFENESIN/DM 200-20MG, 10ML UDC PO PRN (08:23)
[2018-09-19] MEDS: VANCOMYCIN 900 MG in SODIUM CHLORIDE 0.9% 100 ML IV SCH (08:23)
[2018-09-19 08:59] VITALS: BP 117/68
[2018-09-19] MEDS ORDERED: CEFDINIR 300 MG CAPSULE PO SCH (10:30)
[2018-09-19] MEDS ORDERED: DOXYCYCLINE 100MG CAP PO SCH (11:00)
[2018-09-19] MEDS ORDERED: CIPROFLOXACIN 750 MG TABLET PO SCH (11:00)
[2018-09-19] MEDS: ACETAMINOPHEN 325 MG TABLET PO PRN (12:13)
[2018-09-19] MEDS ORDERED: CEFD300C37 PO (14:17)
[2018-09-19] MEDS ORDERED: LACT1CAP35 PO (14:17)
[2018-09-19] MEDS ORDERED: DOXY100C2 PO (14:17)
[2018-09-19] MEDS ORDERED: ONDA4TAB7 PO (14:17)
[2018-09-19] MEDS ORDERED: CIPR750T PO ×2 (15:45→15:46)
== END 2018-09-19 17:15 | disposition home or self-care (01) | DRG 871 ==
LOC: ED 20:29 → EDIP 20:30 → ED 21:12 → 4WST 22:59 → DCLOUNGE 09-19 16:34
PROVIDERS: ADMIT Internal Medicine; ATTEND Internal Medicine
PROC: 02HV33Z Insertion of Infusion Device into Superior Vena Cava, Percutaneous Approach (ICD-10-PCS; principal; 2018-09-13)
PROC: B5181ZA Fluoroscopy of Superior Vena Cava using Low Osmolar Contrast, Guidance (ICD-10-PCS; 2018-09-13)
PROC: B548ZZA Ultrasonography of Superior Vena Cava, Guidance (ICD-10-PCS; 2018-09-13)
DX: A41.9 Sepsis, unspecified organism (principal); J18.1 Lobar pneumonia, unspecified organism; J96.20 Acute and chronic respiratory failure, unspecified whether with hypoxia or hypercapnia; D63.8 Anemia in other chronic diseases classified elsewhere; E87.6 Hypokalemia; F12.90 Cannabis use, unspecified, uncomplicated; I10 Essential (primary) hypertension; J45.909 Unspecified asthma, uncomplicated; Y95 Nosocomial condition; Z99.81 Dependence on supplemental oxygen
CPT/HCPCS: 36415; 84145; 87400; 87806; 99291; J7613; J7620; J7626; 36573; 71045; 71275; 80048; 80076; 80202; 82040; 83605; 83880; 84484; 85025; 86480; 87040; 87305; 93005; 94640; 96365; G0378; J2248; J2543; J3370; Q9967; C1751; G0475; J7030; J7512

== ENCOUNTER 2019-04-13 09:59 | Day surgery (SDC) | payer OTHER ==
[~2019-04-13] VITALS: Ht 147.3 cm; Wt 49.9 kg
[~2019-04-13 09:59] MED LIST changes: +CEFD300C37 PO; +CIPR750T PO; +DOXY100C2 PO; +LACT1CAP35 PO; +ONDA4TAB7 PO
[2019-04-13] MEDS ORDERED: ALBUTEROL SULFATE 2.5 MG/3 ML NPPB PRN (10:30)
[2019-04-13] MEDS ORDERED: PRED20TA PO (10:45)
[2019-04-13 10:46] VITALS: BP 122/75
[2019-04-13] MEDS ORDERED: SODIUM CHLORIDE 0.9% 1,000 ML IV SCH (11:00)
[2019-04-13] MEDS ORDERED: DIPHENHYDRAMINE 50 MG/ML, 1ML ONE (11:32)
[2019-04-13] MEDS ORDERED: GLYCOPYRROLATE 0.4 MG/2 ML, 2ML ONE (11:33)
[2019-04-13] MEDS ORDERED: MIDAZOLAM 1 MG/ML, 5ML ONE (11:34)
[2019-04-13] MEDS ORDERED: FENTANYL PF 100 MCG/2ML ONE (11:34)
[2019-04-13] MEDS ORDERED: ALBUTEROL SULFATE 2.5 MG/3 ML ONE ×3 (12:16→15:19)
[2019-04-13] MEDS ORDERED: LIDOCAINE 4% TOPICAL SOLUTION 50 ML ONE (15:08)
[2019-04-13] MEDS ORDERED: LIDOCAINE GEL 2%, 5ML ONE (15:08)
== END 2019-04-13 17:00 | disposition home or self-care (01) ==
LOC: OUT 09:59
PROVIDERS: ATTEND Internal Medicine
DX: J45.50 Severe persistent asthma, uncomplicated (principal); G47.36 Sleep related hypoventilation in conditions classified elsewhere; Z79.899 Other long term (current) drug therapy; Z88.8 Allergy status to other drugs, medicaments and biological substances
CPT/HCPCS: 31660; 94640; 99152; 99153; C1886; J1200; J2250; J3010; J7030; J7613

== ENCOUNTER 2019-05-04 08:35 | Day surgery (SDC) | payer OTHER ==
[~2019-05-04] VITALS: Ht 148.6 cm; Wt 50.4 kg
[~2019-05-04 08:35] MED LIST changes: +PRED20TA PO
[2019-05-04] MEDS ORDERED: MIDAZOLAM 1 MG/ML, 5ML ONE (08:49)
[2019-05-04] MEDS ORDERED: DIPHENHYDRAMINE 50 MG/ML, 1ML ONE (08:49)
[2019-05-04] MEDS ORDERED: FENTANYL PF 100 MCG/2ML ONE ×2 (08:49)
[2019-05-04] MEDS ORDERED: GLYCOPYRROLATE 0.4 MG/2 ML, 2ML ONE (08:49)
[2019-05-04 09:14] VITALS: BP 133/86
[2019-05-04] MEDS ORDERED: FLUT9.9S NAS (09:18)
[2019-05-04] MEDS ORDERED: SODIUM CHLORIDE 0.9% 1,000 ML IV SCH (09:30)
[2019-05-04] MEDS: ALBUTEROL SULFATE 2.5 MG/3 ML NPPB PRN ×2 (10:30→13:45)
[2019-05-04] MEDS ORDERED: ALBUTEROL SULFATE 2.5 MG/3 ML ONE (10:32)
[2019-05-04] MEDS ORDERED: LIDOCAINE 2%, 20ML ONE (12:00)
[2019-05-04] MEDS ORDERED: LIDOCAINE 4% TOPICAL SOLUTION 50 ML ONE (12:00)
== END 2019-05-04 15:35 | disposition home or self-care (01) ==
LOC: OUT 08:35
PROVIDERS: ATTEND Internal Medicine
DX: J45.50 Severe persistent asthma, uncomplicated (principal); J44.9 Chronic obstructive pulmonary disease, unspecified; Z79.899 Other long term (current) drug therapy; Z88.8 Allergy status to other drugs, medicaments and biological substances
CPT/HCPCS: 31661; 94640; 99152; 99153; C1886; J1200; J2250; J3010; J7613